=== PATIENT | female | born 1965 | race Caucasian/White ===

== ENCOUNTER 2020-10-25 12:58 | Emergency (ER) | payer OTHER ==
[~2020-10-25] VITALS: Ht 162.6 cm; Wt 69.5 kg
[2020-10-25] MEDS ORDERED: LISI-662 PO (14:41)
[2020-10-25 14:54] VITALS: BP 151/83
[2020-10-25 15:16] LABS: COVID AG,FIA SOURCE NASAL SWAB
== END 2020-10-25 15:06 | disposition home or self-care (01) ==
LOC: EMS 12:58
DX: R09.81 Nasal congestion (principal); Z20.828 Contact with and (suspected) exposure to other viral communicable diseases
CPT/HCPCS: 87426; 99283; C9803